=== PATIENT | female | born 1950 | race Caucasian/White ===

== ENCOUNTER → 2016-11-09 | Outpatient (CLI) | payer OTHER ==
--- NOTE | 2016-11-10 10:02 | REP ---
PA and lateral chest 11/09/2016 Comparison: PA and lateral chest 03/17/2016, CT chest 10/24/2013 There has been a prior median sternotomy. Right atrial and ventricular pacer leads as well as an epicardial lead are identified and unchanged. Additionally there are cardiac valvular prostheses. There is small amount of bibasilar fibrotic scarring. 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 Impression: prior median sternotomy with cardiac pacers and valvular replacement, stable Small amount of bibasilar fibrotic scarring Findings most compatible with COPD Signed by Suri Piper MD 11/09/2016 12:57 P
== END ==
LOC: M WUC 11:08 → M LRY 11:08
PROVIDERS: ATTEND Nurse Practitioner Family
DX: R06.02 Shortness of breath (principal)

== ENCOUNTER → 2016-11-18 | Outpatient (REF) | payer OTHER | LOC: M LAB REF 16:57 | PROVIDERS: ATTEND Internal Medicine Medical Oncology | DX: C18.9 Malignant neoplasm of colon, unspecified (principal) ==

== ENCOUNTER → 2017-05-19 | Outpatient (REF) | payer OTHER | LOC: M LAB REF 16:38 | PROVIDERS: ATTEND Internal Medicine Medical Oncology | DX: C18.9 Malignant neoplasm of colon, unspecified (principal) ==

== ENCOUNTER → 2017-11-19 | Outpatient (REF) | payer OTHER ==
[2017-11-20 14:51] LABS: CARCINOEMBRYONIC ANTIGEN 0.5 NG/ML (<2.5)
== END ==
LOC: M LAB REF 17:53
DX: C18.9 Malignant neoplasm of colon, unspecified (principal)

== ENCOUNTER → 2025-07-12 | Outpatient (CLI) | payer MEDICARE, OTHER ==
[~2025-07-12] MED LIST: 3ML25MIS SC; BISO10TA14 PO; CART240C3 PO; CYAN1000VL IM; DIGO0.253 PO; DILT240C42 PO; LEXA1TAB PO; STEL45IN SC; WARF-60 PO
== END ==
LOC: M SOG 07:24
PROVIDERS: ATTEND Neuromusculoskeletal Medicine, Sports Medicine
DX: M25.562 Pain in left knee (principal)